=== PATIENT | female | born 1995 | race African-American/Black ===

== ENCOUNTER 2017-02-27 13:09 | Emergency (ER) | payer MEDICAID ==
[~2017-02-27] VITALS: Ht 172.7 cm; Wt 86.2 kg
[2017-02-27 13:34] VITALS: BP 130/70
[2017-02-27 13:38] LABS: Urine Bilirubin Negative (Negative); Urine Blood Negative /uL (Negative); Urine Color Yellow (Yellow); Urine Glucose Normal (Normal); Urine Ketone Negative (Negative); Urine Mucus FEW (None Seen); Urine Nitrite Negative (Negative); Urine RBC 3 /hpf (0 - 4); Urine Squamous Epithelial Cell FEW /hpf (<5); Urine Urobilinogen Normal (Negative)
[2017-02-27] MEDS ORDERED: PHENAZOPYRIDINE HCL 100 MG TAB PO ONE (14:45)
[2017-02-27] MEDS ORDERED: cefTRIAXone SOD 1,000 MG VL IM ONE (14:45)
== END 2017-02-27 14:54 | disposition home or self-care (01) ==
LOC: ER 13:09
DX: N39.0 Urinary tract infection, site not specified (principal)
CPT/HCPCS: 81001; 81025; 96372; 99284; J0696